=== PATIENT | female | born 1965 | race Caucasian/White ===

== ENCOUNTER 2020-07-06 18:17 | Emergency (ER) | payer OTHER, SELFPAY ==
[2020-07-06 18:29] VITALS: BP 124/80; PULSE 56; RESP 15; TEMP 36.8; O2SAT 98; BMI 21.5
--- NOTE | 2020-07-06 18:37 | DI.RAD.S_ITS ---
PROCEDURE: XR WRIST RT 2V INDICATIONS: deformity TECHNIQUE: 2 views of the wrist were acquired. COMPARISON: None. FINDINGS: Bones: Comminuted, angulated distal radius fracture with some impaction, extending to the distal articular surface, with dorsal angulation of the major distal fragment. No other fractures or dislocations. No suspicious bony lesions. Soft tissues: No suspicious soft tissue calcifications. IMPRESSION: Comminuted, impacted, angulated distal radius fracture extending to the articular surface Dictated by: Edenilson Nelson M.D. on 07/06/2020 at 18:55 Approved by: Edenilson Nelson M.D. on 07/06/2020 at 18:57
--- NOTE | 2020-07-06 20:02 | ED_ITS ---
HPI - Extremity Injury (Upper) General Chief Complaint: Extremity Injury, Upper Stated Complaint: LEFT WRIST INJRY Time Seen by Provider: 07/06/20 19:18 Source: patient and family Mode of arrival: Family Vehicle Limitations: no limitations History of Present Illness HPI narrative: Patient complains of right wrist pain, brought in by . Patient slipped on wet deck at home. Fell on outstretched hand. Denies any other injuries. No prior injuries to the hand or wrist. No numbness tingling weakness. No skin injury. No recent illness. MD complaint: injury to: right and wrist Related Data Previous Rx's Medication Instructions Recorded hydrocodone-acetaminophen 1 tab PO Q6H PRN #20 tab 07/06/20 ondansetron 4 mg PO Q8H PRN #10 tab 07/06/20 Allergies Allergy/AdvReac Type Severity Reaction Status Date / Time No Known Drug Allergies Allergy Verified 07/06/20 18:29 Review of Systems Review of Systems Narrative: GENERAL: Denies chills, fatigue, malaise, fever, sweats. HEENT: Denies sinus pain, ear pain, sore throat, difficulty swallowing RESPIRATORY: Denies dyspnea, cough CARDIOVASCULAR: Denies chest pain, palpitations, edema, GASTROINTESTINAL: Denies nausea, vomiting, abdominal pain, diarrhea, constipation, melena. : Denies dysuria, frequency, hematuria MUSCULOSKELETAL: Complains muscle or bony pain SKIN: Denies rash, skin lesions NEUROLOGIC: Denies weakness, headache, numbness, change in speech, confusion PSYCHIATRIC: Slightly anxious ROS Unobtainable: All systems reviewed & are unremarkable except as noted in HPI and below Patient History Social History Smoking Status: Unknown if ever smoked Smoking Status: Unknown if ever smoked alcohol intake frequency: holidays/special occasions only Substance Use Type: does not use Exam Narrative Exam Narrative: GENERAL: patient appears stated age. Well-nourished, well-d eveloped patient, in no distress, not toxic not dyspneic HEAD: Normocephalic. EXTREMITIES: Examination right hand. Cool to touch with icing pack. However light touch intact to fingers and thumb. Able to mental health program manager lightly. Due to pain. Limited range of motion to the wrist due to pain. Strong radial pulse. Brisk cap refills. Nontender elbow and fingers. BACK: Nontender without deformity or crepitance. No flank tenderness. NEURO: AOx4. SKIN: Warm and dry PSYCH: Not anxious, is cooperative Initial Vital Signs Initial Vital Signs: Vital Signs Temperature 98.2 F 07/06/20 18:29 Pulse Rate 56 L 07/06/20 18:29 Respiratory Rate 15 07/06/20 18:29 Blood Pressure 124/80 07/06/20 18:29 Pulse Oximetry 98 07/06/20 18:29 Procedures Orthopedic Fracture Reduction Fracture #1: Time Out Performed: Yes Side: right Fracture Reduction Location: radius Analgesia: hematoma block Technique: direct manipulation and traction/counter-traction Post Reduction X-rays Demonstrate: acceptable reduction Post-reduction neuro exam: intact Post-reduction vascular exam: intact Splint Applied: Yes Patient Tolerated Procedure: Well Orthopedic Splinting/Casting Injury #1: Side: right Upper Extremity Injury Location: wrist Upper Extremity Immobilizer: sugar tong splint Post splinting neuro exam: intact Post splinting vascular exam: intact Placed by: Provider Course Course Course Narrative: Pain controlled with medications well as hematoma block. Orders Ordered: ED Orders 07/06/20 18:37 XR wrist RT 2V Stat 07/06/20 21:49 XR wrist RT min 3V Stat Discontinued Medications Hydrocodone Bitart/Acetaminophen (Hydrocodone/Acet 5/325 Prepack) 1 bottle MISC SEEINSTR ONE Stop: 07/06/20 22:14 Last Admin: 07/06/20 22:20 Dose: 1 bottle Documented by: WANDER Hydromorphone HCl (Hydromorphone 1 Mg Inj) 1 mg IM NOW ONE Stop: 07/06/20 20:03 Last Admin: 07/06/20 20:06 Dose: 1 mg Documented by: WANDER Ondansetron HCl (Ondansetron 4 Mg Odt) 4 mg SL NOW ONE Stop: 07/06/20 20:03 Last Admin: 07/06/20 20:06 Dose: 4 mg Documented by: WANDER Reevaluation(s) Reevaluation #1: Patient tolerated hematoma block as well as joint reduction and splinting very well. They desire discharge home. Agree with treatment plan Time: 22:21 Consultations Consultation #1: Spoke with Orthopedics dr hendrix, instructed to try to do hematoma block as well as reduction of fracture. Placed in sugar-tong and follow-up in the office Time: 20:07 Vital Signs Vital signs: Vital Signs - 8 hr 07/06/20 18:29 07/06/20 21:54 Temperature 98.2 F Pulse Rate 56 L 60 Respiratory Rate 15 16 Blood Pressure 124/80 114/60 Pulse Oximetry 98 97 MDM - Extremity Injury (Upper) Differential Diagnosis Differential diagnosis: Likely sprain and strain of wrist, fracture of wrist, Colles' fracture and fracture of hand Imaging Data Extremity x-ray #1: Radiologist's Impression: [address] [id number] ReportSigned Patient: Maty Bryant JMR#: [id number]: 1965Acct:[id number]/Sex: 55 / FDate of Service: 07/06/20Loc: EDAccession Number: [id number] Procedure: XR wrist RT 2V Ordering Provider: Rusty Salmeron MD PROCEDURE: XR WRIST RT 2V INDICATIONS: deformity TECHNIQUE: 2 views of the wrist were acquired. COMPARISON: None. FINDINGS: Bones: Comminuted, angulated distal radius fracture with some impaction, extending to the distal articular surface, with dorsal angulation of the major distal fragment. No other fractures or dislocations. No suspicious bony lesions. Soft tissues: No suspicious soft tissue calcifications. IMPRESSION: Comminuted, impacted, angulated distal radius fracture extending to the articular surface Dictated by: Edenilson Nelson M.D. on 07/06/2020 at 18:55 Approved by: Edenilson Nelson M.D. on 07/06/2020 at 18:57 Extremity x-ray #2: Radiologist's Impression: Post reduction x-ray of right wrist faxed impression comminuted mildly dorsally of the fracture of the distal right radius. Minimally displaced ulnar styloid process fracture MDM Narrative Medical decision making narrative: Appropriate discharge home. Neurovascularly intact. Reviewed with patient and family and orthopedist. Discharge Plan Departure Patient Disposition: Home Clinical Impression: Fracture of wrist Qualifiers: Encounter type: initial encounter Fracture type: closed Laterality: right Qualified Code(s): S62.101A - Fracture of unspecified carpal bone, right wrist, initial encounter for closed fracture Instructions: DI for Distal Radius Fracture Activity Restrictions/Additional Instructions: No driving or operating machinery. May loosen [place] wrap if hand or arm feels too tight or cold or numb. Return if worse if any questions concerns. Call provided orthopedic office on Thursday for office recheck next week. Keep arm and hand elevated above level of heart when at rest. Use sling for comfort when walking. Prescriptions: New ondansetron 4 mg tablet,disintegrating 4 mg PO Q8H PRN (Reason: nausea and vomiting) Qty: 10 RF: 0 hydrocodone-acetaminophen 5-325 mg tablet 1 tab PO Q6H PRN (Reason: pain) Qty: 20 RF: 0 Referrals: Alesia Nuñez MD [Primary Care Provider] - Maria L Hendrix MD [Physician] -
[2020-07-06] MEDS: HYDROMORPHONE 1 MG INJ IM (20:06)
[2020-07-06] MEDS: ONDANSETRON 4 MG ODT SL (20:06)
[2020-07-06] MEDS: LIDOCAINE 2% INJ MDV 20 ML (21:35)
--- NOTE | 2020-07-06 21:49 | DI.RAD.S_ITS ---
PROCEDURE: XR WRIST RT MIN 3V INDICATIONS: Post reduction TECHNIQUE: 3 views of the wrist were acquired. COMPARISON: [facility], , XR WRIST RT 2V, 07/06/2020, 18:41. FINDINGS: Bones: Overlying casting material somewhat limits evaluation. From prior examination there is no significant change in alignment or appearance of the comminuted intra-articular mildly displaced, comminuted and angulated distal radius fracture. Additional mildly displaced ulnar styloid fracture. Degenerative changes of the wrist are unchanged. No dislocation. Soft tissues: No suspicious soft tissue calcifications. IMPRESSION: No significant interval change in alignment or appearance of the intra-articular comminuted, impacted, angulated distal radius fracture status post casting. Mildly displaced ulnar styloid fracture. Agree with preliminary interpretation. Dictated by: Shawn Bowers D.O. on 07/07/2020 at 6:34 Approved by: Shawn Bowers D.O. on 07/07/2020 at 6:39
[2020-07-06 21:54] VITALS: BP 114/60; PULSE 60; RESP 16; O2SAT 97
[2020-07-06] MEDS: HYDROCODONE/ACET 5/325 PREPACK 1 BOTTLE MISC (22:20)
== END 2020-07-06 22:41 | disposition home or self-care (01) ==
PROVIDERS: Emergency Provider Emergency Medicine; PCP Family Medicine
DX: S62.101A Fracture of unspecified carpal bone, right wrist, initial encounter for closed fracture (principal); W01.0XXA Fall on same level from slipping, tripping and stumbling without subsequent striking against object, initial encounter
CPT/HCPCS: 25605; 29105; 73100; 73110; 96372; 99283; 99284; J1170